=== PATIENT | female | born 1975 | race Caucasian/White ===

== ENCOUNTER → 2021-05-09 | Outpatient (CLI) | payer OTHER ==
[~2021-05-09] MED LIST: FLEXERIL PO; HYDROCODONE-AP1 EAC6 PO; MICROGESTIN FE1 EACH PO
== END ==
LOC: MRI 08:25
PROVIDERS: ATTEND Orthopaedic Surgery Orthopaedic Surgery of the Spine
DX: M19.012 Primary osteoarthritis, left shoulder (principal); M54.16 Radiculopathy, lumbar region; M48.061 Spinal stenosis, lumbar region without neurogenic claudication; M48.07 Spinal stenosis, lumbosacral region